=== PATIENT | male | born 1940 | race Caucasian/White ===

== ENCOUNTER 2017-09-07 14:45 | Inpatient (IN) | payer MEDICARE, OTHER ==
[2017-09-07 16:01] LABS: BASO % 0.6 % (0.0-1.0); EOS # 0.3 10^3/uL (0.0-0.50); EOS % 3.7 % (0.0-3.0); HEMATOCRIT 42.5 % (42.0-52.0); HEMOGLOBIN 13.9 g/dl (14.0-18.0); IMMATURE GRANULOCYTE % 0.1 % (0-0); LYMPH # 1.3 10^3/uL (1.5-4.5); LYMPH % 19.4 % (24.0-44.0); MEAN CORPUSCULAR HEMOGLOBIN 29.3 pg (27.0-33.0); MEAN CORPUSCULAR HGB CONC 32.7 g/dl (32.0-36.5); MEAN CORPUSCULAR VOLUME 89.5 fl (80.0-96.0); MONO # 0.6 10^3/uL (0.0-0.8); MONO % 8.1 % (0.0-5.0); NEUTROPHILS # 4.6 10^3/uL (1.8-7.7); NEUTROPHILS % 68.1 % (36.0-66.0); PLATELET COUNT, AUTOMATED 199 10^3/uL (150-450); RED BLOOD COUNT 4.75 10^6/uL (4.30-6.10); RED CELL DISTRIBUTION WIDTH 13.1 % (11.5-14.5); WHITE BLOOD COUNT 6.8 10^3/uL (4.0-10.0)
[2017-09-07] MEDS: ASPIRIN 81 MG CHEW TABLET PO (16:08)
[2017-09-07] MEDS: NS 1,000 ML IV (16:09)
[2017-09-07 16:11] LABS: INR 1.01; PROTHROMBIN TIME 13.4 SECONDS (12.4-14.5)
[2017-09-07 16:24] LABS: ALBUMIN 3.8 GM/DL (3.2-5.2); ALBUMIN/GLOBULIN RATIO 0.95 (1.00-1.93); ALKALINE PHOSPHATASE 86 U/L (45-117); ALT/SGPT 16 U/L (12-78); ANION GAP 8 MEQ/L (8-16); AST/SGOT 8 U/L (7-37); BILIRUBIN,DIRECT 0.2 MG/DL (0.0-0.2); BLOOD UREA NITROGEN 19 MG/DL (7-18); CALCIUM LEVEL 8.4 MG/DL (8.8-10.2); CARBON DIOXIDE LEVEL 27 MEQ/L (21-32); CHLORIDE LEVEL 107 MEQ/L (98-107); CPK CREATINE PHOSPHOKINASE 41 U/L (39-308); CREATININE FOR GFR 0.85 MG/DL (0.70-1.30); GLOMERULAR FILTRATION RATE > 60.0 (>42); GLUCOSE, FASTING 96 MG/DL (83-110); LIPASE 142 U/L (73-393); SODIUM LEVEL 142 MEQ/L (136-145); TOTAL PROTEIN 7.8 GM/DL (6.4-8.2); TROPONIN I < 0.02 NG/ML (< 0.10)
[2017-09-07 16:30] LABS: CK-MB VALUE MASS 1.1 NG/ML (0.0-3.6); MB/CK RELATIVE INDEX 2.68 (< OR =4)
[2017-09-07] MEDS ORDERED: ONDANSETRON 4MG/2ML VIAL (J2405) IV (18:15)
[2017-09-07] MEDS ORDERED: ISOVUE-370 76% 100ML VIAL (Q9967) As Ordered (18:33)
[2017-09-07] MEDS ORDERED: ASPIRIN 81 MG ENTERIC TAB PO (21:00)
[2017-09-07] MEDS: DOCUSATE SODIUM 100 MG CAP PO (21:33)
[2017-09-07] MEDS: APIXABAN 5 MG TAB (ELIQUIS) PO (21:36)
[2017-09-07] MEDS: CYANOCOBALAMIN 500 MCG TAB PO (21:40)
[2017-09-08 00:20] LABS: CK-MB VALUE MASS 1.2 NG/ML (0.0-3.6); CPK CREATINE PHOSPHOKINASE 45 U/L (39-308); MB/CK RELATIVE INDEX 2.66 (< OR =4); TROPONIN I < 0.02 NG/ML (< 0.10)
[2017-09-08 06:51] LABS: HEMATOCRIT 38.2 % (42.0-52.0); HEMOGLOBIN 12.4 g/dl (14.0-18.0); MEAN CORPUSCULAR HGB CONC 32.5 g/dl (32.0-36.5); MEAN CORPUSCULAR VOLUME 89.5 fl (80.0-96.0); PLATELET COUNT, AUTOMATED 170 10^3/uL (150-450); RED BLOOD COUNT 4.27 10^6/uL (4.30-6.10); RED CELL DISTRIBUTION WIDTH 13.1 % (11.5-14.5); WHITE BLOOD COUNT 6.2 10^3/uL (4.0-10.0)
[2017-09-08 07:03] LABS: MAGNESIUM LEVEL 2.2 MG/DL (1.8-2.4)
[2017-09-08 07:08] LABS: ANION GAP 8 MEQ/L (8-16); BLOOD UREA NITROGEN 16 MG/DL (7-18); CALCIUM LEVEL 8.2 MG/DL (8.8-10.2); CARBON DIOXIDE LEVEL 25 MEQ/L (21-32); CHLORIDE LEVEL 110 MEQ/L (98-107); CREATININE FOR GFR 0.77 MG/DL (0.70-1.30); GLOMERULAR FILTRATION RATE > 60.0 (>42); GLUCOSE, FASTING 100 MG/DL (83-110); POTASSIUM SERUM 4.5 MEQ/L (3.5-5.1); SODIUM LEVEL 143 MEQ/L (136-145)
[2017-09-08 07:12] LABS: CPK CREATINE PHOSPHOKINASE 37 U/L (39-308); TROPONIN I < 0.02 NG/ML (< 0.10)
[2017-09-08] MEDS ORDERED: ENOXAPARIN 40 MG/0.4 ML SYRINGE (J1650) SC (09:00)
[2017-09-08] MEDS: FUROSEMIDE 40 MG TAB PO (09:22)
[2017-09-08] MEDS: DOCUSATE SODIUM 100 MG CAP PO ×2 (09:22→20:10)
[2017-09-08] MEDS: APIXABAN 5 MG TAB (ELIQUIS) PO ×2 (09:22→20:10)
[2017-09-08] MEDS: METOPROLOL TART 25 MG TABLET PO (17:35)
[2017-09-08] MEDS: CYANOCOBALAMIN 500 MCG TAB PO (20:10)
[2017-09-09] MEDS: METOPROLOL TART 25 MG TABLET PO ×4 (00:04→17:42)
[2017-09-09 04:11] LABS: HEMATOCRIT 38.7 % (42.0-52.0); HEMOGLOBIN 12.7 g/dl (14.0-18.0); MEAN CORPUSCULAR HEMOGLOBIN 29.1 pg (27.0-33.0); MEAN CORPUSCULAR HGB CONC 32.8 g/dl (32.0-36.5); MEAN CORPUSCULAR VOLUME 88.8 fl (80.0-96.0); PLATELET COUNT, AUTOMATED 188 10^3/uL (150-450); RED BLOOD COUNT 4.36 10^6/uL (4.30-6.10); RED CELL DISTRIBUTION WIDTH 12.9 % (11.5-14.5)
[2017-09-09 04:23] LABS: ANION GAP 9 MEQ/L (8-16); BLOOD UREA NITROGEN 20 MG/DL (7-18); CALCIUM LEVEL 8.1 MG/DL (8.8-10.2); CARBON DIOXIDE LEVEL 25 MEQ/L (21-32); CHLORIDE LEVEL 107 MEQ/L (98-107); CREATININE FOR GFR 0.73 MG/DL (0.70-1.30); GLOMERULAR FILTRATION RATE > 60.0 (>42); GLUCOSE, FASTING 105 MG/DL (83-110); POTASSIUM SERUM 4.1 MEQ/L (3.5-5.1); SODIUM LEVEL 141 MEQ/L (136-145)
[2017-09-09] MEDS: FUROSEMIDE 40 MG TAB PO (08:56)
[2017-09-09] MEDS: DOCUSATE SODIUM 100 MG CAP PO ×2 (08:56→20:30)
[2017-09-09] MEDS: APIXABAN 5 MG TAB (ELIQUIS) PO ×2 (08:57→20:30)
[2017-09-09] MEDS ORDERED: SLF 3 ML SYR IV (16:15)
[2017-09-09] MEDS: CYANOCOBALAMIN 500 MCG TAB PO (20:31)
[2017-09-09] MEDS: SLF 3 ML SYR IV (20:34)
[2017-09-10] MEDS: METOPROLOL TART 25 MG TABLET PO ×5 (00:13→23:56)
[2017-09-10] MEDS: SLF 3 ML SYR IV ×3 (05:15→22:29)
[2017-09-10 05:36] LABS: HEMATOCRIT 39.6 % (42.0-52.0); HEMOGLOBIN 12.9 g/dl (14.0-18.0); MEAN CORPUSCULAR HEMOGLOBIN 28.7 pg (27.0-33.0); MEAN CORPUSCULAR HGB CONC 32.6 g/dl (32.0-36.5); MEAN CORPUSCULAR VOLUME 88.2 fl (80.0-96.0); PLATELET COUNT, AUTOMATED 195 10^3/uL (150-450); RED BLOOD COUNT 4.49 10^6/uL (4.30-6.10); RED CELL DISTRIBUTION WIDTH 12.8 % (11.5-14.5); WHITE BLOOD COUNT 7.6 10^3/uL (4.0-10.0)
[2017-09-10 05:59] LABS: ANION GAP 7 MEQ/L (8-16); BLOOD UREA NITROGEN 26 MG/DL (7-18); CALCIUM LEVEL 8.7 MG/DL (8.8-10.2); CARBON DIOXIDE LEVEL 28 MEQ/L (21-32); CHLORIDE LEVEL 107 MEQ/L (98-107); CREATININE FOR GFR 0.92 MG/DL (0.70-1.30); GLOMERULAR FILTRATION RATE > 60.0 (>42); GLUCOSE, FASTING 96 MG/DL (83-110); POTASSIUM SERUM 3.7 MEQ/L (3.5-5.1); SODIUM LEVEL 142 MEQ/L (136-145)
[2017-09-10] MEDS: DOCUSATE SODIUM 100 MG CAP PO ×2 (08:35→21:42)
[2017-09-10] MEDS: APIXABAN 5 MG TAB (ELIQUIS) PO ×2 (08:35→21:39)
[2017-09-10] MEDS: FUROSEMIDE 40 MG TAB PO (08:35)
[2017-09-10] MEDS: CYANOCOBALAMIN 500 MCG TAB PO (21:39)
[2017-09-11] MEDS: METOPROLOL TART 25 MG TABLET PO ×2 (05:06→12:58)
[2017-09-11] MEDS: SLF 3 ML SYR IV ×3 (05:07→22:21)
[2017-09-11] MEDS: LR 1,000 ML IV ×3 (06:01→21:15)
[2017-09-11 06:02] LABS: HEMATOCRIT 42.3 % (42.0-52.0); HEMOGLOBIN 13.9 g/dl (14.0-18.0); MEAN CORPUSCULAR HEMOGLOBIN 29.2 pg (27.0-33.0); MEAN CORPUSCULAR HGB CONC 32.9 g/dl (32.0-36.5); MEAN CORPUSCULAR VOLUME 88.9 fl (80.0-96.0); PLATELET COUNT, AUTOMATED 219 10^3/uL (150-450); RED BLOOD COUNT 4.76 10^6/uL (4.30-6.10); RED CELL DISTRIBUTION WIDTH 12.9 % (11.5-14.5); WHITE BLOOD COUNT 8.3 10^3/uL (4.0-10.0)
[2017-09-11 06:18] LABS: ANION GAP 6 MEQ/L (8-16); BLOOD UREA NITROGEN 27 MG/DL (7-18); CALCIUM LEVEL 8.5 MG/DL (8.8-10.2); CARBON DIOXIDE LEVEL 29 MEQ/L (21-32); CHLORIDE LEVEL 108 MEQ/L (98-107); CREATININE FOR GFR 1.01 MG/DL (0.70-1.30); GLOMERULAR FILTRATION RATE > 60.0 (>42); GLUCOSE, FASTING 112 MG/DL (83-110); SODIUM LEVEL 143 MEQ/L (136-145)
[2017-09-11] MEDS: APIXABAN 5 MG TAB (ELIQUIS) PO (07:24)
[2017-09-11] MEDS ORDERED: LR 500 ML IV (08:00)
[2017-09-11] MEDS: DOCUSATE SODIUM 100 MG CAP PO ×2 (09:40→22:20)
[2017-09-11] MEDS ORDERED: PROPOFOL 200 MG/20 ML VIAL As Ordered (18:38)
[2017-09-11] MEDS ORDERED: fentaNYL 100 MCG/2 ML INJECTION (J3010) As Ordered (18:38)
[2017-09-11] MEDS ORDERED: MIDAZOLAM INJ 2 MG/2 ML VIAL (J2250) As Ordered (18:38)
[2017-09-11] MEDS: CETACAINE SPRAY 5GM As Ordered (19:10)
[2017-09-11] MEDS: LIDOCAINE 1% MDV INJ 50 ML VIAL As Ordered (19:40)
[2017-09-11] MEDS: ISOVUE-300 61% 50ML VIAL (Q9967) As Ordered (19:40)
[2017-09-11] MEDS: LIDOCAINE 1% MDV 20ML VIAL As Ordered (19:48)
[2017-09-11] MEDS: ceFAZolin 1GM INJ (J0690 PER 500MG) As Ordered (19:49)
[2017-09-11] MEDS: AMIODARONE 150MG/3ML INJ (J0282) As Ordered ×2 (20:15→20:30)
[2017-09-11] MEDS ORDERED: fentaNYL 100 MCG/2 ML INJECTION (J3010) IV (21:15)
[2017-09-11] MEDS ORDERED: ONDANSETRON 4MG/2ML VIAL (J2405) IV (21:15)
[2017-09-11] MEDS ORDERED: PERCOCET 5MG/325MG TAB PO (21:15)
[2017-09-11] MEDS: AMIODARONE 200 MG TAB (PACERONE) PO (22:19)
[2017-09-11] MEDS: CYANOCOBALAMIN 500 MCG TAB PO (22:19)
[2017-09-11] MEDS: LISINOPRIL 5 MG TAB PO (22:20)
[2017-09-12] MEDS: CEFAZOLIN SOD 1 GM in APPROPRIATE DILUENT 1 EA IV ×3 (04:41→21:37)
[2017-09-12] MEDS: SLF 3 ML SYR IV ×3 (04:44→21:38)
[2017-09-12] MEDS: LISINOPRIL 5 MG TAB PO (05:15)
[2017-09-12 05:20] LABS: HEMATOCRIT 40.7 % (42.0-52.0); HEMOGLOBIN 13.2 g/dl (14.0-18.0); MEAN CORPUSCULAR HEMOGLOBIN 28.8 pg (27.0-33.0); MEAN CORPUSCULAR HGB CONC 32.4 g/dl (32.0-36.5); MEAN CORPUSCULAR VOLUME 88.7 fl (80.0-96.0); PLATELET COUNT, AUTOMATED 186 10^3/uL (150-450); RED BLOOD COUNT 4.59 10^6/uL (4.30-6.10); RED CELL DISTRIBUTION WIDTH 12.7 % (11.5-14.5); WHITE BLOOD COUNT 9.3 10^3/uL (4.0-10.0)
[2017-09-12 05:40] LABS: ANION GAP 7 MEQ/L (8-16); BLOOD UREA NITROGEN 24 MG/DL (7-18); CALCIUM LEVEL 8.2 MG/DL (8.8-10.2); CARBON DIOXIDE LEVEL 26 MEQ/L (21-32); CHLORIDE LEVEL 109 MEQ/L (98-107); CREATININE FOR GFR 0.92 MG/DL (0.70-1.30); GLOMERULAR FILTRATION RATE > 60.0 (>42); GLUCOSE, FASTING 109 MG/DL (83-110); SODIUM LEVEL 142 MEQ/L (136-145)
[2017-09-12] MEDS: DOCUSATE SODIUM 100 MG CAP PO ×2 (09:11→21:37)
[2017-09-12] MEDS: AMIODARONE 200 MG TAB (PACERONE) PO ×4 (09:11→21:38)
[2017-09-12] MEDS: FUROSEMIDE 40 MG TAB PO (09:11)
[2017-09-12] MEDS: CYANOCOBALAMIN 500 MCG TAB PO (21:37)
[2017-09-12] MEDS: APIXABAN 5 MG TAB (ELIQUIS) PO (21:37)
[2017-09-13] MEDS: SLF 3 ML SYR IV (05:37)
[2017-09-13] MEDS: ACETAMINOPHEN TAB 650MG DOSE (2X325MG) PO (05:37)
[2017-09-13 05:50] LABS: HEMATOCRIT 39.2 % (42.0-52.0); HEMOGLOBIN 12.9 g/dl (14.0-18.0); MEAN CORPUSCULAR HEMOGLOBIN 28.9 pg (27.0-33.0); MEAN CORPUSCULAR HGB CONC 32.9 g/dl (32.0-36.5); MEAN CORPUSCULAR VOLUME 87.9 fl (80.0-96.0); PLATELET COUNT, AUTOMATED 196 10^3/uL (150-450); RED BLOOD COUNT 4.46 10^6/uL (4.30-6.10); RED CELL DISTRIBUTION WIDTH 12.7 % (11.5-14.5); WHITE BLOOD COUNT 8.4 10^3/uL (4.0-10.0)
[2017-09-13 06:05] LABS: ANION GAP 6 MEQ/L (8-16); BLOOD UREA NITROGEN 19 MG/DL (7-18); CALCIUM LEVEL 8.4 MG/DL (8.8-10.2); CARBON DIOXIDE LEVEL 28 MEQ/L (21-32); CHLORIDE LEVEL 108 MEQ/L (98-107); GLOMERULAR FILTRATION RATE > 60.0 (>42); GLUCOSE, FASTING 108 MG/DL (83-110); POTASSIUM SERUM 3.6 MEQ/L (3.5-5.1); SODIUM LEVEL 142 MEQ/L (136-145)
[2017-09-13] MEDS: APIXABAN 5 MG TAB (ELIQUIS) PO (08:13)
[2017-09-13] MEDS: CHLORTHALIDONE 12.5MG PER 1/2 TABLET PO (08:13)
[2017-09-13] MEDS: LISINOPRIL 10 MG TAB PO (08:14)
[2017-09-13] MEDS: DOCUSATE SODIUM 100 MG CAP PO (08:14)
[2017-09-13] MEDS: AMIODARONE 200 MG TAB (PACERONE) PO (08:22)
[2017-09-14] MEDS ORDERED: APIXABAN 5 MG TAB (ELIQUIS) PO (21:00)
== END 2017-09-13 10:59 | disposition home or self-care (01) | DRG 242 ==
LOC: M ED 14:45 → M ED INP 18:09 → M PCU 20:28
PROC: 0JH606Z Insertion of Pacemaker, Dual Chamber into Chest Subcutaneous Tissue and Fascia, Open Approach (ICD-10-PCS; principal; 2017-09-11 07:59)
PROC: 02H63JZ Insertion of Pacemaker Lead into Right Atrium, Percutaneous Approach (ICD-10-PCS; 2017-09-11 07:59)
PROC: 02HK3JZ Insertion of Pacemaker Lead into Right Ventricle, Percutaneous Approach (ICD-10-PCS; 2017-09-11 07:59)
PROC: 5A2204Z Restoration of Cardiac Rhythm, Single (ICD-10-PCS; 2017-09-11 07:59)
PROC: B246ZZ4 Ultrasonography of Right and Left Heart, Transesophageal (ICD-10-PCS; 2017-09-11 07:59)
DX: I49.5 Sick sinus syndrome (principal); I26.99 Other pulmonary embolism without acute cor pulmonale; I50.31 Acute diastolic (congestive) heart failure; I11.0 Hypertensive heart disease with heart failure; M81.0 Age-related osteoporosis without current pathological fracture; E53.8 Deficiency of other specified B group vitamins; I27.29 Other secondary pulmonary hypertension; I48.0 Paroxysmal atrial fibrillation; R53.83 Other fatigue; Z79.82 Long term (current) use of aspirin; Z79.899 Other long term (current) drug therapy; Z79.1 Long term (current) use of non-steroidal anti-inflammatories (NSAID); Z87.891 Personal history of nicotine dependence

== ENCOUNTER → 2023-04-12 | Outpatient (CLI) | payer MEDICARE, OTHER ==
[~2023-04-12] MED LIST: ALEV220T26 PO; AMIO200T49 PO; AMLO1TAB25 PO; ASPI81TA86 PO; BACITAB PO; CARV6.25 PO; CEFD300C41 PO; CHLO125TA PO; CIPR1TAB20 PO; CLAR500T97 PO; CYAN100049 PO; DOXA1TAB41 PO; ELIQ5TAB PO; FURO20TA2 PO; FURO40TA2 PO; LASI20TA3 PO; LISI10TA22 PO; LISI5TAB11 PO; LOSA100T46 PO; MIRA3350 PO; NAPR220C PO; PROAAER10 INH; VITA500T17 PO
[2023-04-12 12:38] LABS: APPEARANCE, URINE CLEAR (CLEAR); BACTERIA, URINE AUTO NEGATIVE (NEGATIVE); BILIRUBIN, URINE AUTO NEGATIVE (NEGATIVE); BLOOD, URINE BLOOD 1+ (NEGATIVE); COLOR, URINE YELLOW (YELLOW); GLUCOSE, URINE (UA) AUTO NEGATIVE (NEGATIVE); KETONE, URINE AUTO NEGATIVE (NEGATIVE); LEUKOCYTE ESTERASE, URINE AUTO NEGATIVE (NEGATIVE); MUCUS, URINE SMALL (NEGATIVE); NITRITE, URINE AUTO NEGATIVE (NEGATIVE); PROTEIN, URINE AUTO NEGATIVE (NEGATIVE); RBC, URINE AUTO 3 /HPF (0-3); SPECIFIC GRAVITY URINE AUTO 1.014 (1.002-1.035); SQUAMOUS EPITHELIAL CELL UR AU 0 /HPF (0-6); UROBILINOGEN, URINE AUTO 0.2 mg/dL (0.0-2.0); WBC, URINE AUTO 1 /HPF (0-3)
[2023-04-12 12:41] LABS: HEMATOCRIT 44.7 % (42.0-52.0); HEMOGLOBIN 14.2 g/dl (13.5-17.5); MEAN CORPUSCULAR HEMOGLOBIN 29.3 pg (27.0-33.0); MEAN CORPUSCULAR HGB CONC 31.8 g/dl (32.0-36.5); MEAN CORPUSCULAR VOLUME 92.2 fl (80.0-96.0); PLATELET COUNT, AUTOMATED 151 10^3/uL (150-450); RED BLOOD COUNT 4.85 10^6/uL (4.30-6.10); WHITE BLOOD COUNT 6.3 10^3/uL (4.0-10.0)
[2023-04-12 13:08] LABS: ALBUMIN 3.7 G/DL (3.2-5.2); ALKALINE PHOSPHATASE 68 U/L (46-116); ALT/SGPT 22 U/L (7.0-40); AST/SGOT 15 U/L (<34); BILIRUBIN,TOTAL 1.8 MG/DL (0.3-1.2); BLOOD UREA NITROGEN 19 MG/DL (9-23); CALCIUM LEVEL 8.9 MG/DL (8.3-10.6); CARBON DIOXIDE LEVEL 29 MMOL/L (20-31); CHLORIDE LEVEL 106 MMOL/L (98-107); CHOLESTEROL LEVEL 143 MG/DL (<200); CHOLESTEROL RISK RATIO 3.46 (<5); CREATININE FOR GFR 1.04 MG/DL (0.70-1.30); GLOMERULAR FILTRATION RATE > 60.0 (>35); GLUCOSE, FASTING 97 MG/DL (74-106); HDL CHOLESTEROL 41.3 MG/DL (>40); LDL CHOLESTEROL 88.3 MG/DL (<100); NON-HDL-C 101.7 MG/DL; POTASSIUM SERUM 4.5 MMOL/L (3.5-5.1); PROSTATIC SPECIFIC AG MONITOR 1.63 NG/ML (< 4.00); SODIUM LEVEL 140 MMOL/L (136-145); THYROID STIMULATING HORMONE 4.292 uIU/ML (0.55-4.78); TRIGLYCERIDES LEVEL 67 MG/DL (<150)
== END ==
LOC: M WUC 09:45
PROVIDERS: ATTEND Physician Assistant
DX: E03.9 Hypothyroidism, unspecified (principal); E78.5 Hyperlipidemia, unspecified; I48.91 Unspecified atrial fibrillation; R35.1 Nocturia; Z12.5 Encounter for screening for malignant neoplasm of prostate

== ENCOUNTER → 2023-06-21 | Outpatient (CLI) | payer MEDICARE, OTHER ==
[~2023-06-21] MED LIST changes: -CEFD300C41 PO; +CEFD300C42 PO
== END ==
LOC: M WUC 13:08
PROVIDERS: ATTEND Physician Assistant
DX: M13.0 Polyarthritis, unspecified (principal)